=== PATIENT | male | born 1945 | race Caucasian/White ===

== ENCOUNTER 2019-01-19 10:55 | Observation (INO) ==
[2019-01-19 12:22] LABS: Basophils % 0.4 % (0.0-0.8); Eosinophils # 0.1 10*3/uL (0.0-0.87); Eosinophils % 1.7 % (0.00-10.9); Hematocrit 29.2 VOL% (42.0-52.0); Immature Granulocytes % 0.3 %; Immature Granulocytes Absolute 0.02 #; Lymphocytes # 1.7 10*3/uL (1.4-4.0); Lymphocytes % 22.9 % (21.2-54.2); Mean Corpuscular HGB Conc 27.7 GM/DL (32-36); Mean Corpuscular Volume 71.6 FL (87-102); Mean Platelet Volume 9.5 FL (9.6-12.0); Monocytes % 11.3 % (1.7-12.7); Neutrophils % 63.4 % (38.7-73.9); Platelet Count 310 T/CUMM (130-400); Red Blood Count 4.08 MC/CUMM (3.8-5.5); Red Cell Distribution Width 19.2 % (9.3-17.3); White Blood Count 7.5 T/CUMM (4-12)
[2019-01-19 12:23] LABS: Hemoglobin 8.1 GM/DL (14.0-18.0)
[2019-01-19 12:29] LABS: Apearance,Urine CLEAR (Clear); Bilirubin,Urine Negative (Negative); Blood, Urine Negative (Negative); Glucose,Urine (UA) Negative (Negative); Ketones,Urine Negative (Negative); Mucus,Urine Occasional /LPF (Occasional); Nitrite,Urine Negative (Negative); Protein,Urine Negative; Urine Color Straw (Yellow); Urine Specific Gravity 1.005 (1.001-1.035); Urine Urobilinogen < 2.0 EU/DL (0.2-1.0)
[2019-01-19 12:31] LABS: Barbiturates Screen,Urine Negative (Negative); Benzodiazepines Screen,Urine Negative (Negative); Cannabinoid Screen,Urine Negative (Negative); Opiate Screen,Urine Negative (Negative); Phencyclidine Screen,Urine Negative (Negative)
[2019-01-19 12:33] LABS: INR 2.4
[2019-01-19 12:34] LABS: PT Patient Result 26.3 SECS
[2019-01-19 12:41] LABS: Albumin 4.1 G/DL (3.4-5.0); Bilirubin,Total 0.8 MG/DL (0.2-1.0); Osmolality,Calculated 283.3 MOS/KG (273-304); Total Protein 7.9 G/DL (6.4-8.3)
[2019-01-19 12:45] LABS: % Iron Saturation 3.1 % (18-50); Ferritin 7.2 ng/ml (26-388)
[2019-01-19 12:51] LABS: Hypochromasia 1+; Microcytosis 1+
[2019-01-19 12:52] LABS: Ovalocytes Few; Platelet Estimate Normal
[2019-01-19] MEDS ORDERED: ONDANSETRON 4 MG/2 ML VIAL IV PRN (13:09)
[2019-01-19] MEDS ORDERED: ACETAMINOPHEN 325 MG TABLET PO PRN (13:09)
[2019-01-19] MEDS ORDERED: PROMETHAZINE 25 MG/1 ML VIAL IM PRN (13:09)
[2019-01-19] MEDS ORDERED: GLUCAGON 1 MG VIAL IM PRN (13:20)
[2019-01-19] MEDS ORDERED: DEXTROSE 50% 25 GM/50 ML VIAL IV PRN (13:20)
[2019-01-19] MEDS ORDERED: FAMOTIDINE INJ 40 MG in SODIUM CHLORIDE 0.9% 100 ML IV SCH (13:30)
[2019-01-19] MEDS ORDERED: CYANOCOBALAMIN 1000 MCG/1 ML VIAL IM SCH (13:30)
[2019-01-19] MEDS: SODIUM CHLORIDE 0.9% 1,000 ML IV SCH (15:00)
[2019-01-19] MEDS: PANTOPRAZOLE 40 MG TABLET PO SCH ×2 (15:00→23:33)
[2019-01-19] MEDS: IRON SUCROSE 200 MG in SODIUM CHLORIDE 0.9% 100 ML IV SCH (15:10)
[2019-01-19 15:12] LABS: Folate 17.4 NG/ML (5.4-24.0)
[2019-01-19 15:55] LABS: % Iron Saturation 3.2 % (18-50)
[2019-01-19 16:38] LABS: Hematocrit 27.5 VOL% (42.0-52.0); Hemoglobin 7.6 GM/DL (14.0-18.0)
[2019-01-19] MEDS: INSULIN LISPRO 100 UNIT/ML SUBCUT SCH ×2 (16:38→23:29)
[2019-01-19] MEDS ORDERED: SODIUM CHLORIDE 0.9% 1,000 ML IV PRN (16:41)
[2019-01-19] MEDS: SIMVASTATIN 20 MG TABLET PO SCH (17:15)
[2019-01-19 23:01] LABS: Hematocrit 29.4 VOL% (42.0-52.0); Hemoglobin 8.2 GM/DL (14.0-18.0)
[2019-01-19] MEDS: FAMOTIDINE 20 MG/2 ML VIAL IV SCH (23:30)
[2019-01-20 06:01] LABS: Calcium 8.4 MG/DL (8.5-10.1); Osmolality,Calculated 283.1 MOS/KG (273-304); Risk Ratio 2.16
[2019-01-20 06:36] LABS: Basophils % 0.8 % (0.0-0.8); Eosinophils # 0.2 10*3/uL (0.0-0.87); Eosinophils % 3.1 % (0.00-10.9); Hematocrit 33.9 VOL% (42.0-52.0); Immature Granulocytes % 0.4 %; Immature Granulocytes Absolute 0.02 #; Lymphocytes # 1.1 10*3/uL (1.4-4.0); Lymphocytes % 20.2 % (21.2-54.2); Mean Corpuscular HGB Conc 27.4 GM/DL (32-36); Mean Corpuscular Volume 75.2 FL (87-102); Monocytes % 13.4 % (1.7-12.7); Neutrophils % 62.1 % (38.7-73.9); Platelet Count 261 T/CUMM (130-400); Red Blood Count 4.51 MC/CUMM (3.8-5.5); Red Cell Distribution Width 19.9 % (9.3-17.3)
[2019-01-20 06:41] LABS: Hemoglobin 9.3 GM/DL (14.0-18.0); White Blood Count 5.2 T/CUMM (4-12)
[2019-01-20 06:55] LABS: Elliptocytes Few; Hypochromasia 1+; Microcytosis Slight; Platelet Estimate Adequate
[2019-01-20 07:09] LABS: INR 2.5
[2019-01-20 07:11] LABS: PT Patient Result 26.5 SECS
[2019-01-20] MEDS ORDERED: LIDOCAINE 2% 5 ML VIAL ONE (09:00)
[2019-01-20] MEDS ORDERED: PROPOFOL 200 MG/20 ML VIAL IV ONE (09:00)
[2019-01-20] MEDS ORDERED: ETOMIDATE 20 MG/10 ML VIAL IV ONE (09:00)
[2019-01-20] MEDS: INSULIN LISPRO 100 UNIT/ML SUBCUT SCH ×4 (10:31→22:00)
[2019-01-20] MEDS: CHOLECALCIFEROL 1,000 UNIT TABLET PO SCH (10:32)
[2019-01-20] MEDS: IRON SUCROSE 200 MG in SODIUM CHLORIDE 0.9% 100 ML IV SCH (10:32)
[2019-01-20] MEDS: PANTOPRAZOLE 40 MG TABLET PO SCH ×2 (10:32→21:20)
[2019-01-20] MEDS: FAMOTIDINE 20 MG/2 ML VIAL IV SCH ×2 (10:32→21:44)
[2019-01-20] MEDS: DILTIAZEM CD 300 MG CAPSULE PO SCH (10:32)
[2019-01-20] MEDS: SODIUM CHLORIDE 0.9% 1,000 ML IV SCH ×3 (10:34→20:40)
[2019-01-20 14:10] LABS: Hematocrit 33.9 VOL% (42.0-52.0); Hemoglobin 9.5 GM/DL (14.0-18.0)
[2019-01-20] MEDS: SIMVASTATIN 20 MG TABLET PO SCH (16:29)
[2019-01-20 18:25] LABS: Hematocrit 33.4 VOL% (42.0-52.0)
[2019-01-20 23:32] LABS: Hematocrit 31.4 VOL% (42.0-52.0)
[2019-01-21] MEDS: SODIUM CHLORIDE 0.9% 1,000 ML IV SCH ×3 (04:34→20:27)
[2019-01-21 06:18] LABS: Basophils % 0.5 % (0.0-0.8); Eosinophils # 0.2 10*3/uL (0.0-0.87); Eosinophils % 2.1 % (0.00-10.9); Hematocrit 33.5 VOL% (42.0-52.0); Hemoglobin 9.4 GM/DL (14.0-18.0); Immature Granulocytes % 0.4 %; Immature Granulocytes Absolute 0.03 #; Lymphocytes # 1.3 10*3/uL (1.4-4.0); Lymphocytes % 15.5 % (21.2-54.2); Mean Corpuscular HGB Conc 28.1 GM/DL (32-36); Mean Corpuscular Volume 74.8 FL (87-102); Monocytes % 10.7 % (1.7-12.7); Neutrophils % 70.8 % (38.7-73.9); Platelet Count 247 T/CUMM (130-400); Red Blood Count 4.48 MC/CUMM (3.8-5.5); Red Cell Distribution Width 19.9 % (9.3-17.3); White Blood Count 8.1 T/CUMM (4-12)
[2019-01-21 06:22] LABS: Albumin 3.5 G/DL (3.4-5.0); Bilirubin,Total 1.1 MG/DL (0.2-1.0); Calcium 8.4 MG/DL (8.5-10.1)
[2019-01-21] MEDS: PANTOPRAZOLE 40 MG TABLET PO SCH ×2 (08:08→20:29)
[2019-01-21] MEDS: CHOLECALCIFEROL 1,000 UNIT TABLET PO SCH (08:08)
[2019-01-21] MEDS: FAMOTIDINE 20 MG/2 ML VIAL IV SCH ×2 (08:08→20:28)
[2019-01-21] MEDS: IRON SUCROSE 200 MG in SODIUM CHLORIDE 0.9% 100 ML IV SCH (08:08)
[2019-01-21] MEDS: INSULIN LISPRO 100 UNIT/ML SUBCUT SCH ×4 (08:13→20:49)
[2019-01-21] MEDS: DILTIAZEM CD 300 MG CAPSULE PO SCH (08:13)
[2019-01-21 13:17] LABS: PT Patient Result 21.2 SECS
[2019-01-21] MEDS: SIMVASTATIN 20 MG TABLET PO SCH (16:52)
[2019-01-22] MEDS: SODIUM CHLORIDE 0.9% 1,000 ML IV SCH (05:17)
[2019-01-22 06:12] LABS: Albumin 2.9 G/DL (3.4-5.0); Bilirubin,Total 0.9 MG/DL (0.2-1.0); Osmolality,Calculated 285.8 MOS/KG (273-304)
[2019-01-22 06:18] LABS: Basophils % 0.4 % (0.0-0.8); Eosinophils # 0.2 10*3/uL (0.0-0.87); Eosinophils % 2.7 % (0.00-10.9); Hematocrit 29.5 VOL% (42.0-52.0); Immature Granulocytes % 0.4 %; Immature Granulocytes Absolute 0.03 #; Mean Corpuscular HGB Conc 28.8 GM/DL (32-36); Mean Corpuscular Volume 74.7 FL (87-102); Mean Platelet Volume 10.1 FL (9.6-12.0); Monocytes % 12.3 % (1.7-12.7); Neutrophils % 72.2 % (38.7-73.9); Platelet Count 215 T/CUMM (130-400); Red Blood Count 3.95 MC/CUMM (3.8-5.5); Red Cell Distribution Width 20.2 % (9.3-17.3); White Blood Count 8.4 T/CUMM (4-12)
[2019-01-22 06:19] LABS: Hemoglobin 8.5 GM/DL (14.0-18.0)
[2019-01-22 06:52] LABS: Hypochromasia 1+; Platelet Estimate Adequate
[2019-01-22] MEDS ORDERED: POTASSIUM CHLORIDE 20 MEQ TABLET PO ONE (07:12)
[2019-01-22] MEDS: INSULIN LISPRO 100 UNIT/ML SUBCUT SCH ×2 (07:30→13:00)
[2019-01-22] MEDS: FAMOTIDINE 20 MG/2 ML VIAL IV SCH (08:35)
[2019-01-22] MEDS: PANTOPRAZOLE 40 MG TABLET PO SCH (08:35)
[2019-01-22] MEDS: CHOLECALCIFEROL 1,000 UNIT TABLET PO SCH (08:36)
[2019-01-22] MEDS: DILTIAZEM CD 300 MG CAPSULE PO SCH (08:36)
[2019-01-22] MEDS: IRON SUCROSE 200 MG in SODIUM CHLORIDE 0.9% 100 ML IV SCH (10:15)
[2019-01-22 12:17] LABS: Hematocrit 33.4 VOL% (42.0-52.0)
[2019-01-22 12:18] LABS: Hemoglobin 9.2 GM/DL (14.0-18.0)
[2019-01-22 13:05] VITALS: BP 138/70
== END 2019-01-22 15:00 | disposition home or self-care (01) ==
LOC: N.EDINP 10:55 → N.ED 10:55 → SUATTDRO 13:09 → N.5E 14:20
PROVIDERS: ADMIT Emergency Medicine; ATTEND Internal Medicine